=== PATIENT | male | born 1995 | race Caucasian/White ===

== ENCOUNTER 2016-07-29 13:40 | Outpatient (CLI) | payer OTHER ==
[~2016-07-29] VITALS: Ht 177.8 cm; Wt 86.4 kg
[2016-07-29 14:46] VITALS: BP 145/76; PULSE 74; RESP 16; Ht 177.8 cm; Wt 86.4 kg
--- NOTE | 2016-07-29 15:26 | PN ---
Date/Time of Note Date/Time of Note DATE: 07/29/16 TIME: 15:20 Assessment/Plan Assessment/Plan Assessment/Plan [facility] Inpatient Progress Note Date of Service: 07/29/2016 Today's Assessment & Plan: Overall stable and doing well. No evidence for major post operative complication or indication for acute surgical intervention. With above assessment, I've recommended the following for today: 1. F/u with PCP 2. F/u with us prn 3. Appropriate changes towards healthier lifestyle Thank you again for your great care of this very pleasant gentleman and his wonderful family. If there are any questions, please feel free to call me at . TOTAL VISIT TIME: 20 minutes of which more than half was spent in [id number] discussion with the patient as well as coordination of care between multiple physicians and providers. Disclaimer: Inadvertent spelling and grammatical errors are likely due to EHR/ dictation software use and do not reflect on the quality of delivered patient care. Also, please note that the electronic time recorded on this node does not necessarily reflect the actual time of the visit. Updated Clinical Summary: The patient is a very pleasant 20-year-old otherwise healthy young gentleman admitted with diagnosis of acute appendicitis as supported by his history and physical, elevated white blood cell count, and CT scan of the abdomen and pelvis showing inflamed appendix. Status post laparoscopic appendectomy 2015 for acute appendicitis on final pathology. Comorbidity/PMHx List: 1. Acute appendicitis, s/p laparoscopic appendectomy 07/10/2016 4. BMI 26.7 Subjective: No major events or complaints; no major abd pain and no longer on pain medications; no n/v/d; no sob or cp; + flatus; + BM and normal; + activity Objective: Vitals: See below Exam: GENERAL: On exam, the patient was sitting on a chair and appeared to be comfortable and in no acute distress. ABDOMEN: Soft, nontender and nondistended. Incisions are clean, dry and intact without any evidence of obvious erythema, edema, discharge, or hernia. There are no peritoneal signs or guarding. SKIN: Skin appears to be pink and feels warm to touch. NEUROLOGIC: Patient is awake, alert, and follows commands appropriately. Exam/Review of Systems Vital Signs Vitals Vital Signs Date Time Temp Pulse Resp B/P Pulse Ox O2 Delivery O2 Flow Rate FiO2 07/29/16 14:46 98.4 74 16 145/76 99 Room Air JANA MILLER M.D. Jul 29, 2016 15:26
== END 2016-07-29 16:47 | disposition home or self-care (01) ==
LOC: HPC 13:40
PROVIDERS: ATTEND Transplant Surgery
DX: K37 Unspecified appendicitis (principal)
CPT/HCPCS: G0463